=== PATIENT | female | born 1970 | race Caucasian/White ===

== ENCOUNTER → 2016-11-13 | Outpatient (CLI) | payer OTHER ==
--- NOTE | 2016-11-14 14:35 | Diagnostic Imaging Report ---
INDICATION: Screening mammogram, COMPARISON: 08/23/2014, 07/26/2013. FAMILY HISTORY: Negative. TECHNIQUE: Bilateral digital mammography was performed with computer assisted detection (CAD) software utilization. PERSONAL HISTORY: There are no reported clinical signs and/or symptoms of breast cancer. FINDINGS: The breast tissue pattern is composed mostly of radiographically dense breast tissue. This does limit the sensitivity somewhat. RIGHT BREAST: A stereotactic biopsy clip is present at the 12 o'clock position, unchanged. The rounded mass at the posterior aspect of this area seen on the CC view is unchanged. An additional mass is seen in the medial superior right breast at posterior depth and shows no change from the prior examinations. No architectural distortion is seen. No suspicious calcification. LEFT BREAST: No dominant mass, suspicious microcalcification, or other significant abnormality is identified. IMPRESSION: Negative for malignancy. Followup mammography in one year is recommended. ACR BI-RADS Category 2: Benign findings. Result letter will be mailed to the patient. Note: At least 10% of breast cancer is not imaged by mammography. Dictated by: Dictated on workstation # [id number]
== END ==
LOC: RAD 08:44
PROVIDERS: ATTEND Family Medicine
DX: Z12.31 Encounter for screening mammogram for malignant neoplasm of breast (principal)